=== PATIENT | female | born 1980 | race Two or more races ===

== ENCOUNTER 2016-11-04 17:14 | Emergency (ER) | payer OTHER ==
[2016-11-04 17:28] VITALS: BP 137/87; PULSE 80; TEMP 98.1; BMI 46.0
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
[2016-11-04] MEDS ORDERED: KETOROLAC TROMETHAMINE 30 MG/1 ML VIAL IM ONE (19:44)
--- NOTE | 2016-11-04 19:56 | PDOC ---
*Physical Exam - Vital Signs Last Vital Signs Temp Pulse Resp BP Pulse Ox 98.1 F 80 18 137/87 100 11/04/16 17:25 11/04/16 17:25 11/04/16 17:25 11/04/16 17:25 11/04/16 17:25 Medical Decision Making - Medical Decision Making 11/04/16 19:55 agree with care from KERRY Gonzáles *DC/Admit/Observation/Transfer Diagnosis at time of Disposition: Rib pain on left side - Referrals Referrals: Desirae Noble MD [Primary Care Provider] - - Patient Instructions - Post Discharge Activity
[2016-11-04] MEDS ORDERED: KETOROLAC TROMETHAMINE 60 MG/2 ML VIAL IM ONE (20:24)
[2016-11-04] MEDS ORDERED: diazePAM 5 MG TABLET PO ONE (20:25)
[2016-11-04] MEDS ORDERED: diazePAM 5 MG TABLET ONE (20:26)
[2016-11-04] MEDS ORDERED: KETOROLAC TROMETHAMINE 60 MG/2 ML VIAL ONE (20:26)
== END 2016-11-04 21:00 | disposition home or self-care (01) ==
LOC: JER 17:14
PROC: 3E0233Z Introduction of Anti-inflammatory into Muscle, Percutaneous Approach (ICD-10-PCS; principal; 2016-11-04)
DX: M94.0 Chondrocostal junction syndrome [Tietze] (principal); I10 Essential (primary) hypertension; E03.9 Hypothyroidism, unspecified; J45.909 Unspecified asthma, uncomplicated; K21.9 Gastro-esophageal reflux disease without esophagitis; W51.XXXA Accidental striking against or bumped into by another person, initial encounter; Y93.I1 Activity, roller coaster riding; Y92.831 Amusement park as the place of occurrence of the external cause; Y99.8 Other external cause status
CPT/HCPCS: 71101-TC; 96372; 99283-25

== ENCOUNTER 2017-04-13 10:40 | Day surgery (SDC) | payer OTHER ==
[2017-04-09 15:43] VITALS: BMI 44.6
[2017-04-13] MEDS ORDERED: LEVOFLOXACIN 500 MG PREMIX BAG IVPB ONE (12:37)
[2017-04-13] MEDS ORDERED: MIDAZOLAM HCL 2 MG/2 ML SINGLE DOSE VIAL ONE (13:02)
[2017-04-13] MEDS ORDERED: fentaNYL CITRATE 250 MCG/5 ML VIAL ONE (13:02)
[2017-04-13] MEDS ORDERED: LEVOFLOXACIN 500 MG IVPB 100 ML IVPB ONE ×2 (13:19→13:20)
[2017-04-13] MEDS ORDERED: PROMETHAZINE HCL 25 MG/1 ML VIAL IVPUSH PRN (13:35)
[2017-04-13] MEDS ORDERED: oxyCODONE HCL 5 MG TABLET PO PRN (13:35)
[2017-04-13] MEDS ORDERED: ONDANSETRON 4 MG/2 ML VIAL IVPUSH PRN (13:35)
[2017-04-13] MEDS ORDERED: LACTATED RINGERS SOLUTION 1,000 ML IV SCH (13:45)
[2017-04-13 13:48] VITALS: TEMP 98
[2017-04-13] MEDS ORDERED: ACETAMINOPHEN 325 MG TABLET (FP) PO ONE (14:37)
[2017-04-13 15:36] VITALS: BP 129/60; PULSE 57
--- NOTE | 2017-04-13 16:03 | OP ---
Operative Note - Note: Operative Date: 04/13/17 Pre-Operative Diagnosis: left renal stone Operation: left ESWL Post-Operative Diagnosis: Same as Pre-op Surgeon: Tereso Mariscal Anesthesia: Fractional
--- NOTE | 2017-04-14 14:32 | OP ---
DATE OF OPERATION: 04/13/2017 PREOPERATIVE DIAGNOSIS: Left renal stone. POSTOPERATIVE DIAGNOSIS: Left renal stone. PROCEDURE: Left extracorporeal shock wave lithotripsy. ATTENDING: Becca Eubanks MD ANESTHESIA: General. DESCRIPTION OF OPERATION: The patient was brought in the operating room, placed in supine position on the operating room table. Ultrasonography and fluoroscopy were performed. A left mid-pole, 6-mm stone was identified. Extracorporeal shock wave lithotripsy was then started. Antibiotics were given preoperatively, and anesthesia was administered. Next, 2500 impulses at 17 joules of power were administered to the stone with excellent fragmentation under real-time ultrasonography and fluoroscopy. No complications were noted. The patient tolerated the procedure very well. BECCA EUBANKS M.D. [id number]
== END 2017-04-13 15:35 | disposition home or self-care (01) ==
LOC: JASU-SURG 10:40
PROVIDERS: ATTEND Urology
PROC: 0TF4XZZ Fragmentation in Left Kidney Pelvis, External Approach (ICD-10-PCS; principal; 2017-04-13 13:15)
DX: N20.0 Calculus of kidney (principal)
CPT/HCPCS: 84703; 94760

== ENCOUNTER 2017-06-01 06:18 | Day surgery (SDC) | payer OTHER ==
[2017-05-07 17:20] VITALS: BMI 44.6
[2017-06-01] MEDS ORDERED: MIDAZOLAM HCL 2 MG/2 ML SINGLE DOSE VIAL ONE (07:37)
[2017-06-01] MEDS ORDERED: SUCCINYLCHOLINE CHLORIDE 200 MG/10 ML VIAL ONE (07:37)
[2017-06-01] MEDS ORDERED: PROPOFOL 20 ML ONE ×9 (07:37→07:38)
[2017-06-01] MEDS ORDERED: ePHEDrine SULFATE 50 MG/1 ML AMPULE ONE (07:37)
[2017-06-01] MEDS ORDERED: LEVOFLOXACIN 500 MG IVPB 500 MG/100 ML BAG IVPB ONE (07:41)
[2017-06-01] MEDS ORDERED: LIDOCAINE HCL/PF 2% SDV 5ML VIAL ONE (07:41)
[2017-06-01] MEDS ORDERED: LEVOFLOXACIN 500 MG PREMIX BAG IVPB ONE (08:15)
[2017-06-01] MEDS ORDERED: oxyCODONE HCL 5 MG TABLET PO PRN (09:54)
[2017-06-01] MEDS ORDERED: ONDANSETRON 4 MG/2 ML VIAL IVPUSH PRN (09:54)
[2017-06-01 10:31] VITALS: BP 134/87; PULSE 63; TEMP 98.1
--- NOTE | 2017-06-01 15:00 | OP ---
Operative Note - Note: Operative Date: 06/01/17 Pre-Operative Diagnosis: left renal stone Operation: left eswl Findings: 8 mm x 6 mm left mid pole stone Post-Operative Diagnosis: Same as Pre-op Surgeon: Tereso Mariscal Anesthesia: Fractional
== END 2017-06-01 10:15 | disposition home or self-care (01) ==
LOC: JASU-SURG 06:18
PROVIDERS: ATTEND Urology
PROC: 0TF4XZZ Fragmentation in Left Kidney Pelvis, External Approach (ICD-10-PCS; principal; 2017-06-01 08:00)
DX: N20.0 Calculus of kidney (principal)
CPT/HCPCS: 84703

== ENCOUNTER 2017-12-08 09:41 | Day surgery (SDC) | payer OTHER ==
[2017-12-08 08:15] VITALS: BMI 44.9
[2017-12-08 11:17] VITALS: TEMP 97.5
[2017-12-08 15:41] VITALS: BP 124/76; PULSE 70
--- NOTE | 2017-12-09 16:30 | PATH ---
Surgical Pathology Report Patient Name: MARÍA GALVEZ [facility]. Rec. #: [id number] /Age/Gender: 1980 (Age: 37) / F Account: [id number] Location: U-ENDOSCOPY Taken: 12/08/2017 Received: 12/08/2017 Reported: 12/09/2017 Physicians: Abram Petersen M.D. Specimen(s) Received BX ANTRUM AND BODY Clinical History Abdominal pain, obesity Final Diagnosis stomach, antrum and body, biopsy: Gastric Antral and body mucosa with MILD chronic gastritis. Immunohistochemical STAIN FOR H. Pylori is negative. Electronically Signed Madina Rocha M.D. Gross Description Received in formalin, labeled "biopsy antrum and body" are 3 kendall, irregular portions of soft tissue measuring 0.4 cm. in greatest dimension. The specimen is submitted in toto in one cassette. MARY/12/08/2017 amina/12/08/2017
== END 2017-12-08 12:25 | disposition home or self-care (01) ==
LOC: JASU-ENDO 09:41
PROVIDERS: ATTEND Internal Medicine Gastroenterology
PROC: 0DJ08ZZ Inspection of Upper Intestinal Tract, Via Natural or Artificial Opening Endoscopic (ICD-10-PCS; principal; 2017-12-08 10:15)
DX: Z01.818 Encounter for other preprocedural examination (principal); E66.01 Morbid (severe) obesity due to excess calories; K21.9 Gastro-esophageal reflux disease without esophagitis; E11.9 Type 2 diabetes mellitus without complications; Z79.84 Long term (current) use of oral hypoglycemic drugs; I10 Essential (primary) hypertension; G47.30 Sleep apnea, unspecified
CPT/HCPCS: 84703; 88305-TC; 88342-TC

== ENCOUNTER 2018-01-12 05:26 | Inpatient (IN) | payer OTHER ==
[2018-01-11 11:26] VITALS: BMI 45.4
--- NOTE | 2018-01-12 09:02 | HP ---
History & Physical Update - History History: No Change - Physical Physical: No Change - Assessment Assessment: No Change - Plan Plan: No Change (Initial H&P is located in her paper chart. Here today for elective laprascopic vertical sleeve gastrectomy. No new medications or complaints.)
[2018-01-12] MEDS ORDERED: PROPOFOL 20 ML ONE ×2 (09:34→10:01)
[2018-01-12] MEDS ORDERED: MIDAZOLAM HCL 2 MG/2 ML SINGLE DOSE VIAL ONE (09:34)
[2018-01-12] MEDS ORDERED: fentaNYL CITRATE 250 MCG/5 ML VIAL ONE (09:34)
[2018-01-12] MEDS ORDERED: DEXAMETHASONE SOD PHOSPHATE 4 MG/1 ML VIAL ONE ×2 (09:35→11:21)
[2018-01-12] MEDS ORDERED: ROCURONIUM BROMIDE 50 MG/5 ML VIAL ONE ×2 (09:35)
[2018-01-12] MEDS ORDERED: ceFAZolin SODIUM 1 GM VIAL ONE (09:37)
[2018-01-12] MEDS ORDERED: CLINDAMYCIN PHOSPHATE 900 MG/6 ML VIAL IVPB ONE (10:11)
[2018-01-12] MEDS ORDERED: CLINDAMYCIN PHOSPHATE 600 MG/4 ML VIAL ONE (10:11)
[2018-01-12] MEDS ORDERED: BUPIVACAINE HCL/PF 0.5% (5MG/ML) 10 ML VIAL IJ ONE (11:23)
[2018-01-12] MEDS ORDERED: GLYCOPYRROLATE 0.2 MG/1 ML VIAL ONE (11:39)
[2018-01-12] MEDS ORDERED: NEOSTIGMINE METHYLSULFATE 0.5 MG/ML - 10 ML MDV ONE (11:39)
[2018-01-12] MEDS ORDERED: HYDROmorphone HCL CARPU-JECT 1 MG/1 ML DISP.SYRIN IVPB PRN (11:48)
--- NOTE | 2018-01-12 11:48 | SURG ---
Surgery Paediatric Surgeon Note Paediatric Surgeon: Jp Stroud PA-C Date of Service: 01/12/18 Diagnosis: Morbid obesity secondary to caloric intake Procedure: Laprascopic vertical sleeve gastrectomy, wedge live biopsy, intraop egd I was present for the entirety of the operative procedure. For further detail, please refer to operative report. Visit type - Case Type Case Type: Scheduled - New patient This patient is new to me today: Yes Date on this admission: 01/12/18
[2018-01-12] MEDS ORDERED: FAMOTIDINE 20 MG/50 ML IVPB 20 MG/50 ML MG IVPB ONE (11:56)
--- NOTE | 2018-01-12 11:58 | OP ---
Operative Note - Note: Operative Date: 01/12/18 Pre-Operative Diagnosis: Morbid obesity secondary to caloric intake Operation: Laprascopic vertical sleeve gastrectomy, wedge liver biopsy, egd Post-Operative Diagnosis: Same as Pre-op Surgeon: Jarret Maki Livestock Breeder: Jp Stroud Anesthesiologist/FILAMENT COIL WINDER: Darrick Baird Anesthesia: General Specimens Removed: greater curvature of the stomach, wedge liver biopsy. egd Estimated Blood Loss (mls): 20 Fluid Volume Replaced (mls): 1,000 Operative Report Dictated: Yes
[2018-01-12] MEDS: ACETAMINOPHEN 1000 MG/100 ML VIAL (NON FORMULARY) IVPB SCH ×3 (12:00→18:38)
[2018-01-12] MEDS ORDERED: FAMOTIDINE 20 MG PREMIXED IVPB IVPB ONE (12:15)
[2018-01-12] MEDS: FAMOTIDINE 20 MG/50 ML IVPB 20 MG/50 ML MG IVPB SCH (12:15)
[2018-01-12] MEDS: ONDANSETRON 4 MG/2 ML VIAL IVPUSH SCH ×3 (12:20→19:17)
[2018-01-12] MEDS: METOCLOPRAMIDE HCL INJECTION 10 MG/2 ML VIAL IVPUSH SCH ×2 (12:30→20:31)
[2018-01-12 12:37] LABS: HEMATOCRIT 33.7 % (32.4-45.2); HEMOGLOBIN 10.9 GM/dL (10.7-15.3); MCH 27.6 pg (25.7-33.7); MCHC 32.5 g/dl (32.0-36.0); MEAN PLT VOLUME 8.7 fl (7.5-11.1); PLATELET COUNT 306 K/MM3 (134-434); RBC 3.96 M/mm3 (3.60-5.2); RDW 14.9 % (11.6-15.6); WHITE BLOOD COUNT 14.2 K/mm3 (4.0-10.0)
[2018-01-12 13:13] LABS: ALBUMIN 3.5 g/dl (3.4-5.0); ALK PHOS 64 U/L (45-117); ANION GAP 8 (8-16); BILIRUBIN,TOTAL 0.4 mg/dL (0.2-1.0); BLOOD UREA NITROGEN 12 mg/dL (7-18); CALCIUM 8.3 mg/dL (8.5-10.1); CHLORIDE 107 mmol/L (98-107); CO2 25 mmol/L (21-32); CREATININE 0.7 mg/dL (0.55-1.02); GLUCOSE,RANDOM 152 mg/dL (74-106); POTASSIUM 4.3 mmol/L (3.5-5.1); SGOT/AST 27 U/L (15-37); SGPT/ALT 31 U/L (12-78); SODIUM 140 mmol/L (136-145); TOT PROT 7.1 g/dl (6.4-8.2)
--- NOTE | 2018-01-12 14:14 | SPEC ---
DATE OF OPERATION: 01/12/2018 SURGEON: Jarret Maki MD CLOTH EXAMINER: BERTIN Holm PREOPERATIVE DIAGNOSES: 1. Morbid obesity. 2. Body mass index 45.5. 3. Asthma. 4. Hypertension. 5. Diabetes. POSTOPERATIVE DIAGNOSES: 1. Morbid obesity. 2. Body mass index 45.5. 3. Asthma. 4. Hypertension. 5. Diabetes. 6. Hepatomegaly PROCEDURES: 1. Laparoscopic vertical sleeve gastrectomy. 2. Laparoscopic wedge liver biopsy. 3. Esophagogastroduodenoscopy. SPECIMEN: 1. Greater curvature of the stomach. 2. Wedge liver biopsy. ESTIMATED BLOOD LOSS: 30 mL. DRAINS: None. ANESTHESIA: GET. BOUGIE: Size 32 Indonesian. REASON FOR PROCEDURE: This is a 37-year-old female who presented to the office for weight loss options. After discussing the different options, she decided to proceed with a laparoscopic, possible open vertical sleeve gastrectomy, possible liver biopsy, and upper endoscopy. The patient was seen by the respective subspecialties and cleared for surgery. The risks and benefits of the procedure were explained. These included bleeding, infection, hernia, GA, DVT, PE, injury to surrounding structures including the liver, colon, bowel, spleen, esophagus, vessel injury, nerve injury, weight regain, gastric leak, staple line leak, sleeve leak, obstruction, vitamin deficiency, hair loss and as some of the possible complications. The patient understood and signed informed consent. DESCRIPTION OF PROCEDURE: The patient was placed supine on the operating room table. The patient underwent general endotracheal intubation. The arms were brought out at 90 degrees and secured. A footboard was placed and the legs were secured laterally with padding. The abdomen was prepped and draped in the usual sterile fashion. A timeout was performed. An incision was made in the left upper quadrant and a Veress needle inserted. Pneumoperitoneum was established. Subsequently, the Veress needle was removed and a 5-mm trocar was placed under direct visualization with the laparoscope. The laparoscopic camera was then inserted and inspection of the abdominal cavity was performed. An incision was then made in the supraumbilical area and a 15-mm trocar was placed under direct visualization. A 5-mm trocar was then placed in the right upper quadrant and a 5-mm trocar was placed below the left subcostal margin. A stab wound was made in the subxiphoid area and a Marium clamp inserted and removed to dilate the tract. A Jessica liver retractor was inserted. The post was secured at the bedside by the nursing staff. The patient was placed in steep reverse Trendelenburg position and the Jessica liver retractor was used to secure the liver towards the anterior abdominal wall. The pylorus was identified and 6 cm proximal to it, the lesser sac was entered using the LigaSure device. All lateral attachments to the greater curvature of the stomach, including the short gastric vessels, were ligated using the LigaSure device toward the gastrosplenic and gastrophrenic ligaments. Once this was done in its entirety, it was confirmed that all tubes within the nasal or oropharyngeal cavity, including a temperature probe, was removed by Anesthesia. The bougie was then inserted by Anesthesia. Transection of the stomach was then begun staying adjacent to the bougie but away from the angularis. Transection of the stomach was performed near the portion of the stomach where the lesser sac was entered. Two laparoscopic Endo-BASIM black anurag were used at this location. Laparoscopic Endo BASIM purple staple loads were then used for the remainder of the transection until the greater curvature of the stomach was fully transected. This was done staying close to the bougie. Care was taken to stay away from the angle of His cephalad. The staple line was then inspected. Hemostasis was identified. A leak test was then performed. It was clamped distally to the staple line. Irrigation solution was placed in the left upper quadrant and air was insufflated by Anesthesia into the sleeve. No leaks were identified. No obstruction was identified. This was done through the entirety of the staple line. In addition, an upper endoscopy was performed. The endoscope was placed into the patients mouth and the entirety of the esophagus, GE junction, gastric pouch and staple line were inspected. No obstruction or leak was noted. The stomach was suctioned and the endoscope removed fully intact. At this point, the irrigation solution was suctioned and again, hemostasis was noted. A wedge liver biopsy was then performed. The left lobe of the liver was identified and a portion of the edge was grasped. Using electrocautery, a wedge of the liver was excised. This was removed and sent off the field as specimen. Hemostasis at the site of the wedge liver biopsy was attained using electrocautery. The 15-mm supraumbilical trocar was then removed and the greater curvature specimen removed from the site using a sponge stick magaña. The specimen was inspected and a Veress needle inserted. The specimen insufflated adequately and no leak was identified. The staple line was noted to be intact. A Ziyad-Racile device was then used to close the fascia with a 0 Vicryl suture at the site. Again, hemostasis was noted. The Jessica liver retractor was then removed under direct visualization. Pneumoperitoneum was desufflated and the fascial sutures were secured. Hemostasis was noted at all incision sites and Marcaine was injected at all incision sites. All incision sites were closed using 4-0 Biosyn. Sterile dressings were applied. The patient tolerated the procedure well and was transferred to the recovery room in stable condition. The patient was transferred to telemetry for further monitoring. Vidya [id number]
[2018-01-12] MEDS: morphine SULFATE 4 MG/ML VIAL IVPUSH PRN ×2 (15:50→20:31)
[2018-01-12] MEDS ORDERED: morphine SULFATE 4 MG/ML VIAL ONE (15:50)
[2018-01-12] MEDS: SODIUM CHLORIDE 1,000 ML IV SCH (16:00)
[2018-01-12] MEDS ORDERED: metFORMIN HCL 500 MG TABLET (FP) PO SCH (16:30)
[2018-01-12] MEDS: INSULIN SLIDING SCALE (NOVOLOG) 1 VIAL SQ SCH (18:08)
[2018-01-12] MEDS: ENOXAPARIN NA (PORCINE) 40 MG/0.4 ML DISP.SYRIN SQ SCH (21:20)
[2018-01-12] MEDS ORDERED: ALBUTEROL SO4 8 GM HFA INHALER IH PRN (22:00)
[2018-01-12] MEDS ORDERED: amLODIPine BESYLATE 10 MG TABLET (FP) PO SCH (22:00)
[2018-01-13] MEDS: morphine SULFATE 4 MG/ML VIAL IVPUSH PRN ×3 (00:58→11:32)
[2018-01-13] MEDS: METOCLOPRAMIDE HCL INJECTION 10 MG/2 ML VIAL IVPUSH SCH ×4 (00:58→18:36)
[2018-01-13] MEDS: ONDANSETRON 4 MG/2 ML VIAL IVPUSH SCH ×6 (00:58→20:36)
[2018-01-13] MEDS: ACETAMINOPHEN 1000 MG/100 ML VIAL (NON FORMULARY) IVPB SCH ×2 (00:59→05:54)
[2018-01-13] MEDS: INSULIN SLIDING SCALE (NOVOLOG) 1 VIAL SQ SCH ×3 (06:04→17:50)
[2018-01-13 06:43] LABS: HEMATOCRIT 35.2 % (32.4-45.2); HEMOGLOBIN 11.5 GM/dL (10.7-15.3); MCHC 32.7 g/dl (32.0-36.0); MEAN CELL VOLUME 85.6 fl (80-96); MEAN PLT VOLUME 9.3 fl (7.5-11.1); PLATELET COUNT 165 K/MM3 (134-434); RBC 4.11 M/mm3 (3.60-5.2); RDW 15.2 % (11.6-15.6); WHITE BLOOD COUNT 12.2 K/mm3 (4.0-10.0)
[2018-01-13 06:55] LABS: ALBUMIN 3.4 g/dl (3.4-5.0); ANION GAP 7 (8-16); BLOOD UREA NITROGEN 9 mg/dL (7-18); CALCIUM 8.6 mg/dL (8.5-10.1); CHLORIDE 104 mmol/L (98-107); CO2 28 mmol/L (21-32); GLUCOSE,RANDOM 112 mg/dL (74-106); POTASSIUM 4.5 mmol/L (3.5-5.1); SGOT/AST 33 U/L (15-37); SGPT/ALT 34 U/L (12-78); SODIUM 139 mmol/L (136-145)
[2018-01-13 06:58] LABS: ALK PHOS 64 U/L (45-117); BILIRUBIN,TOTAL 0.4 mg/dL (0.2-1.0); CREATININE 0.7 mg/dL (0.55-1.02); TOT PROT 7.1 g/dl (6.4-8.2)
[2018-01-13] MEDS ORDERED: LEVOTHYROXINE NA 150 MCG TABLET PO SCH (07:00)
--- NOTE | 2018-01-13 08:30 | PN ---
Progress Note (short form) - Note Progress Note: POD#1 Pt with no nausea overnight, pain better this am after Pain medications. No CP/ SOB. Ambulated last pm and voiding on her own. Vital Signs Period Temp Pulse Resp BP Sys/Sandoval Pulse Ox Last 24 Hr 97.9 F-98.9 F 60-107 13-21 118-158/71-92 96-100 GEN: A&0x3, NAD CV: RRR Lungs: CTA b/l ABD: soft, non-distended, inc tenderess C/D/I. LE: SHAYNA in place, No calf tenderness b/l CBC, BMP 07/18/18 05:45 07/18/18 05:45 A/P: 37 yo female s/p Lap vertical sleeve gastrectomy, POD#1 Continue npo/IV hydration Plan for UGI series this am and if negative will begin bariatric diet OOB/ambulate DVT ppx with SHAYNA/SCD/ambulate/lovenox SQ
[2018-01-13] MEDS: ENOXAPARIN NA (PORCINE) 40 MG/0.4 ML DISP.SYRIN SQ SCH ×2 (09:34→22:42)
[2018-01-13] MEDS: FAMOTIDINE 20 MG/50 ML IVPB 20 MG/50 ML MG IVPB SCH ×2 (09:34→22:42)
--- NOTE | 2018-01-13 11:09 | PN ---
Progress Note, Physician Chief Complaint: day 1 s/p lap gastric sleeve - Current Medication List Current Medications: Active Medications Albuterol Sulfate (Ventolin Hfa Inhaler -) 2 puff IH Q6H PRN PRN Reason: SHORTNESS OF BREATH Budesonide/Formoterol Fumarate (Symbicort 160/4.5mcg -) 1 puff IH DAILY [facility] Enoxaparin Sodium (Lovenox -) 40 mg SQ BID [facility] Last Admin: 01/13/18 09:34 Dose: 40 mg Famotidine/Sodium Chloride (Pepcid 20 Mg Premixed Ivpb -) 20 mg in 50 mls @ 100 mls/hr IVPB BID [facility] Last Admin: 01/13/18 09:34 Dose: 100 mls/hr Sodium Chloride (Normal Saline -) 1,000 mls @ 150 mls/hr IV ASDIR [facility] Last Admin: 01/12/18 16:00 Dose: 200 mls Insulin Aspart (Novolog Vial Sliding Scale -) 1 vial SQ TIDAC [facility]; Protocol Last Admin: 01/13/18 06:04 Dose: Not Given Levothyroxine Sodium (Synthroid Injection -) 75 mcg IVPUSH DAILY [facility] Metoclopramide HCl (Reglan Injection -) 10 mg IVPUSH Q6H [facility] Last Admin: 01/13/18 05:54 Dose: 10 mg Morphine Sulfate (Morphine Sulfate) 4 mg IVPUSH Q4H PRN PRN Reason: PAIN LEVEL 1-5 Stop: 01/13/18 13:11 Last Admin: 01/13/18 05:54 Dose: 4 mg Ondansetron HCl (Zofran Injection) 4 mg IVPUSH Q4H [facility] Last Admin: 01/13/18 09:34 Dose: 4 mg - Objective Vital Signs: Vital Signs Temperature 98 F 01/13/18 09:45 Pulse Rate 74 01/13/18 09:45 Respiratory Rate 20 01/13/18 09:45 Blood Pressure 148/100 01/13/18 09:45 O2 Sat by Pulse Oximetry (%) 98 01/12/18 22:00 Labs: CBC, BMP 01/13/18 05:45 01/13/18 05:45 Assessment/Plan Patient OOB to chair, doing well; no anesthetic issues. Some mild N/V after PO contrast for XR
[2018-01-13] MEDS ORDERED: PT OWN MED DRAWER 7, Y5N ONE ×2 (12:26→18:04)
[2018-01-13] MEDS: SODIUM CHLORIDE 1,000 ML IV SCH (12:28)
[2018-01-13] MEDS ORDERED: SODIUM CHLORIDE 1,000 ML IV SCH (13:15)
[2018-01-13] MEDS: LEVOTHYROXINE SODIUM 100 MCG VIAL IVPUSH SCH (13:38)
[2018-01-13] MEDS: oxyCODONE HCL 5 MG TABLET PO PRN ×2 (15:11→20:36)
[2018-01-13] MEDS: SIMETHICONE 80 MG TAB.CHEW (FP) PO PRN (16:49)
[2018-01-13] MEDS: BUDESONIDE/FORMETEROL FUMARATE 160/4.5 mcg INHALER IH SCH (16:50)
[2018-01-14] MEDS: oxyCODONE HCL 5 MG TABLET PO PRN (00:58)
[2018-01-14] MEDS: METOCLOPRAMIDE HCL INJECTION 10 MG/2 ML VIAL IVPUSH SCH ×2 (00:58→05:53)
[2018-01-14] MEDS: ONDANSETRON 4 MG/2 ML VIAL IVPUSH SCH ×3 (00:58→09:05)
[2018-01-14] MEDS: SIMETHICONE 80 MG TAB.CHEW (FP) PO PRN (01:05)
[2018-01-14] MEDS: INSULIN SLIDING SCALE (NOVOLOG) 1 VIAL SQ SCH ×2 (06:03→11:41)
[2018-01-14 08:40] VITALS: BP 131/78; PULSE 88; TEMP 98.6
[2018-01-14] MEDS ORDERED: PT OWN MED DRAWER 7, Y5N ONE (08:57)
[2018-01-14] MEDS: FAMOTIDINE 20 MG/50 ML IVPB 20 MG/50 ML MG IVPB SCH (09:01)
[2018-01-14] MEDS: BUDESONIDE/FORMETEROL FUMARATE 160/4.5 mcg INHALER IH SCH (09:01)
[2018-01-14] MEDS: ENOXAPARIN NA (PORCINE) 40 MG/0.4 ML DISP.SYRIN SQ SCH (09:05)
[2018-01-14] MEDS: LEVOTHYROXINE SODIUM 100 MCG VIAL IVPUSH SCH (09:06)
--- NOTE | 2018-01-14 10:10 | PN ---
Progress Note (short form) - Note Progress Note: No acute events Doing well No nausea Pain controlled AVSS Abd soft UGI day 1 : no leak/obstruction On clears Discharge home
[2018-01-14] MEDS ORDERED: LIDOCAINE HCL 1%, 10 MG/ML (20ML VIAL) ONE (10:21)
--- NOTE | 2018-01-14 10:23 | SPEC ---
DATE OF OPERATION: 01/12/2018 SURGEON: Jarret Maki MD SHEET METAL INSULATOR: BERTIN Holm PREOPERATIVE DIAGNOSES: 1. Morbid obesity. 2. Body mass index of 46. 3. Diabetes. 4. Asthma. 5. Hypertension. POSTOPERATIVE DIAGNOSES: 1. Morbid obesity. 2. Body mass index of 46. 3. Diabetes. 4. Asthma. 5. Hypertension. 6. Hepatomegaly. PROCEDURES: 1. Laparoscopic vertical sleeve gastrectomy. 2. Laparoscopic wedge liver biopsy. . SPECIMENS: 1. Greater curvature of the stomach. 2. Wedge liver biopsy. ESTIMATED BLOOD LOSS: 30 mL. DRAINS: None. ANESTHESIA: GET. BOUGIE SIZE: 36-Swedish. REASON FOR PROCEDURE: This is a 37-year-old female who presents for weight loss options. After describing different options, she decided to proceed with a laparoscopic vertical sleeve gastrectomy, possible open, possible liver biopsy and upper endoscopy. RISKS AND BENEFITS: After describing the different options for weight loss management, the patient decided to proceed with a laparoscopic, possible open vertical sleeve gastrectomy. The patient was seen by the respective subspecialties and cleared for surgery. The risks and benefits of the procedure were explained. These included bleeding, infection, hernia, AK, DVT, PE, injury to surrounding structures including the liver, colon, bowel, spleen, esophagus, vessel injury, nerve injury, weight regain, gastric leak, staple line leak, sleeve leak, obstruction, vitamin deficiency, hair loss and as some of the possible complications. The patient understood and signed informed consent. DESCRIPTION OF PROCEDURE: The patient was placed supine on the operating room table. The patient underwent general endotracheal intubation. The arms were brought out at 90 degrees and secured. A footboard was placed, and the legs were secured laterally with padding. The abdomen was prepped and draped in the usual sterile fashion. A timeout was performed. An incision was made in the left upper quadrant and a Veress needle inserted. Pneumoperitoneum was established. Subsequently, the Veress needle was removed and a 5-mm trocar was placed under direct visualization with the laparoscope. The laparoscopic camera was then inserted and inspection of the abdominal cavity was performed. An incision was then made in the supraumbilical area and a 15-mm trocar was placed under direct visualization. A 5-mm trocar was then placed in the right upper quadrant and a 5-mm trocar was placed below the left subcostal margin. A stab wound was made in the subxiphoid area and a Marium clamp inserted and removed to dilate the tract. A Jessica liver retractor was inserted. The post was secured at the bedside by the nursing staff. The patient was placed in steep reverse Trendelenburg position and the Jessica liver retractor was used to secure the liver towards the anterior abdominal wall. The pylorus was identified and 6 cm proximal to it, the lesser sac was entered using the LigaSure device. All lateral attachments to the greater curvature of the stomach, including the short gastric vessels, were ligated using the LigaSure device toward the gastrosplenic and gastrophrenic ligaments. Once this was done in its entirety, it was confirmed that all tubes within the nasal or oropharyngeal cavity, including a temperature probe, was removed by Anesthesia. The bougie was then inserted by Anesthesia. Transection of the stomach was then begun staying adjacent to the bougie but away from the angularis. Transection of the stomach was performed near the portion of the stomach where the lesser sac was entered. Two laparoscopic Endo-BASIM black anurag were used at this location. Laparoscopic Endo BASIM purple staple loads were then used for the remainder of the transection until the greater curvature of the stomach was fully transected. This was done staying close to the bougie. Care was taken to stay away from the angle of His cephalad. The staple line was then inspected. Hemostasis was identified. A leak test was then performed. It was clamped distally to the staple line. Irrigation solution was placed in the left upper quadrant and air was insufflated by Anesthesia into the sleeve. No leaks were identified. No obstruction was identified. This was done through the entirety of the staple line. In addition, an upper endoscopy was performed. The endoscope was placed into the patients mouth and the entirety of the esophagus, GE junction, gastric pouch and staple line were inspected. No obstruction or leak was noted. The stomach was suctioned and the endoscope removed fully intact. At this point, the irrigation solution was suctioned and again, hemostasis was noted. A wedge liver biopsy was then performed. The left lobe of the liver was identified and a portion of the edge was grasped. Using electrocautery, a wedge of the liver was excised. This was removed and sent off the field as specimen. Hemostasis at the site of the wedge liver biopsy was attained using electrocautery. The 15-mm supraumbilical trocar was then removed and the greater curvature specimen removed from the site using a sponge stick magaña. The specimen was inspected and a Veress needle inserted. The specimen insufflated adequately, and no leak was identified. The staple line was noted to be intact. A Ziyad-Raciel device was then used to close the fascia with a 0 Vicryl suture at the site. Again, hemostasis was noted. The Jessica liver retractor was then removed under direct visualization. Pneumoperitoneum was desufflated and the fascial sutures were secured. Hemostasis was noted at all incision sites and Marcaine was injected at all incision sites. All incision sites were closed using 4-0 Biosyn. Sterile dressings were applied. The patient tolerated the procedure well and was transferred to the recovery room in stable condition. The patient was transferred to telemetry for further monitoring. Vidya [id number]
--- NOTE | 2018-01-14 11:57 | PATH ---
Surgical Pathology Report Patient Name: MARÍA GALVEZ [facility]. Rec. #: [id number] /Age/Gender: 1980 (Age: 37) / F Account: [id number] Location: 4 PEDS/ADOL Taken: 01/12/2018 Received: 01/12/2018 Reported: 01/14/2018 Physicians: Jarret Maki M.D. Specimen(s) Received A: GREATER CURVATURE STOMACH B: LIVER BIOPSY Clinical History Morbid obesity Final Diagnosis A. GREATER CURVATURE STOMACH, LAPAROSCOPIC VERTICAL SLEEVE GASTRECTOMY: SEGMENT OF STOMACH SHOWING MILD CHRONIC GASTRITIS. SPECIAL STAIN DIFF-QUIK IS NEGATIVE FOR H. PYLORI ORGANISMS. B. LIVER, BIOPSY: LIVER TISSUE WITH NO HISTOLOGIC EVIDENCE OF CHRONIC HEPATITIS. NO INCREASE IN FIBROSIS (TRICHROME STAIN) OR IRON (IRON STAIN) DEPOSITION. Electronically Signed Ruth Ann Goss M.D. Gross Description A. Received in formalin, labeled "greater curvature stomach," is a 107 gram, 19.0 x 3.3 x 2.6 cm. portion of stomach with a stapled margin of resection. The serosa is kendall-white with minimal attached fat. The mucosa is kendall-pink with focally flattened folds No mucosal masses are identified. Track Moving Machine Operator sections are submitted in one cassette. B. Received in formalin labeled "liver biopsy," is a 4.0 x 1.6 x 1.2 cm portion of kendall soft tissue, consistent with a liver biopsy. Track Moving Machine Operator sections are submitted in one cassette. /01/12/2018 saudi/01/12/2018
== END 2018-01-14 12:10 | disposition home or self-care (01) | DRG 403 ==
LOC: JSAMEDAYSX 05:26 → EDSTATUS 08:00 → J4S 17:49
PROVIDERS: ADMIT Surgery; ATTEND Surgery
PROC: 0DB64Z3 Excision of Stomach, Percutaneous Endoscopic Approach, Vertical (ICD-10-PCS; principal; 2018-01-12 09:00)
PROC: 0FB24ZX Excision of Left Lobe Liver, Percutaneous Endoscopic Approach, Diagnostic (ICD-10-PCS; 2018-01-12 09:00)
PROC: 0DJ08ZZ Inspection of Upper Intestinal Tract, Via Natural or Artificial Opening Endoscopic (ICD-10-PCS; 2018-01-12 09:00)
DX: E66.01 Morbid (severe) obesity due to excess calories (principal); Z68.42 Body mass index [BMI] 45.0-49.9, adult; J45.909 Unspecified asthma, uncomplicated; I10 Essential (primary) hypertension; E11.9 Type 2 diabetes mellitus without complications; R16.0 Hepatomegaly, not elsewhere classified
CPT/HCPCS: 36415; 74241-TC-FY; 80053; 82962; 85027; 88305-TC; 94010; 94760; J0131; J7030

== ENCOUNTER 2019-02-15 05:03 | Inpatient (IN) | payer OTHER | END 2019-02-17 15:03 | disposition home or self-care (01) | LOC: JSAMEDAYSX 05:03 → J8W 17:07 ==

== ENCOUNTER 2020-05-18 06:22 | Day surgery (SDC) | payer OTHER ==
[2020-05-17 17:34] VITALS: BMI 39.4
[2020-05-18] MEDS ORDERED: BUPIVACAINE HCL 100 ML ONE (10:48)
[2020-05-18] MEDS ORDERED: DEXAMETHASONE SOD PHOSPHATE 4 MG/1 ML VIAL ONE ×2 (11:25→11:47)
[2020-05-18] MEDS ORDERED: PROPOFOL 20 ML ONE (11:25)
[2020-05-18] MEDS ORDERED: LIDOCAINE HCL/PF 2% SDV 5ML VIAL ONE (11:25)
[2020-05-18] MEDS ORDERED: MIDAZOLAM HCL 2 MG/2 ML SINGLE DOSE VIAL ONE (11:25)
[2020-05-18] MEDS ORDERED: ROCURONIUM BROMIDE 100 MG/10 ML VIAL ONE (11:28)
[2020-05-18] MEDS ORDERED: ceFAZolin SODIUM 1 GM VIAL IVPB ONE (11:30)
[2020-05-18] MEDS ORDERED: ceFAZolin SODIUM 1 GM VIAL ONE (11:35)
[2020-05-18] MEDS ORDERED: BUPIVACAINE HCL/PF 0.5% (5 MG/ML) 30 ML VIAL IJ ONE (11:42)
[2020-05-18] MEDS ORDERED: KETOROLAC TROMETHAMINE 30 MG/1 ML VIAL ONE (11:47)
[2020-05-18] MEDS ORDERED: NEOSTIGMINE METHYLSULFATE 0.5 MG/ML - 10 ML MDV ONE (12:37)
[2020-05-18] MEDS ORDERED: GLYCOPYRROLATE 0.2 MG/1 ML VIAL ONE (12:37)
[2020-05-18] MEDS ORDERED: ONDANSETRON 4 MG/2 ML VIAL IVPUSH PRN (14:48)
[2020-05-18] MEDS ORDERED: oxyCODONE HCL 5 MG TABLET PO PRN ×2 (14:48)
[2020-05-18] MEDS ORDERED: LACTATED RINGERS SOLUTION 1,000 ML IV SCH (15:00)
[2020-05-18] MEDS ORDERED: oxyCODONE HCL 5 MG TABLET ONE (15:24)
[2020-05-18 17:14] VITALS: BP 116/71; PULSE 76; TEMP 97.8
== END 2020-05-18 16:50 | disposition home or self-care (01) ==
LOC: JASU-SURG 06:22
PROVIDERS: ATTEND Surgery
PROC: 0FT44ZZ Resection of Gallbladder, Percutaneous Endoscopic Approach (ICD-10-PCS; principal; 2020-05-18 10:30)
DX: K80.10 Calculus of gallbladder with chronic cholecystitis without obstruction (principal)
CPT/HCPCS: 88304-TC; 94760